=== PATIENT | male | born 1985 | race Caucasian/White ===

== ENCOUNTER 2022-04-28 23:20 | Emergency (ER) | payer BC ==
[~2022-04-28] VITALS: Ht 188 cm; Wt 88.6 kg
[2022-04-28] MEDS ORDERED: epiNEPHrine 1 mg/ml inj SQ ONE (23:50)
[2022-04-28] MEDS ORDERED: normal saline 1000ML IV soln IVB STA (23:59)
[2022-04-29] MEDS ORDERED: methylPREDNISolone sod succ 125mg/2ml vial IV ONE
[2022-04-29] MEDS ORDERED: famotidine/PF 10 mg/ml inj IV ONE
[2022-04-29] MEDS ORDERED: EPIN0.3P3 IM (01:43)
[2022-04-29 02:17] VITALS: BP 119/67
== END 2022-04-29 02:19 | disposition home or self-care (01) ==
LOC: ER 23:21
DX: T78.40XA Allergy, unspecified, initial encounter (principal); Z88.6 Allergy status to analgesic agent; Z79.899 Other long term (current) drug therapy
CPT/HCPCS: 96361; 96372; 96374; 96375; 99284; J0171; J2930; J3490; J7030